=== PATIENT | female | born 1945 | race Caucasian/White ===

== ENCOUNTER 2016-05-22 10:29 | Inpatient (IN) | payer MEDICARE, BC ==
[2016-05-22 12:14] LABS: Urine Bilirubin Negative (Negative); Urine Glucose Negative (Negative); Urine Nitrite Negative (Negative)
[2016-05-22 12:24] LABS: Benzodiazepine Urine Screen None Detected (None Detect)
[2016-05-22 12:32] LABS: Hematocrit 40 % (35-47); Hemoglobin 13.7 g/dl (12.0-16.0); Mean Corpuscular HGB Conc 34 g/dl (31-36); Mean Corpuscular Hemoglobin 30 pg (27-31); Mean Corpuscular Volume 88 fL (80-97); Mean Platelet Volume 8 um3 (7.4-10.4); Red Blood Count 4.53 10^6/ul (4.0-5.4); Red Cell Distribution Width 13 % (10.5-15); White Blood Count 8.8 10^3/ul (3.5-10.8)
[2016-05-22 12:48] LABS: ALT 13 U/L (7-52); AST 16 U/L (13-39); Albumin 4.1 g/dL (3.2-5.2); Alkaline Phosphatase 21 U/L (34-104); Anion Gap 8 mmol/L (2-11); BUN/Creatinine Ratio 20.3 (8-20); Blood Urea Nitrogen 14 mg/dL (6-24); CO2 Carbon Dioxide 24 mmol/L (22-32); Calcium 9.8 mg/dL (8.6-10.3); Chloride 102 mmol/L (101-111); EGFR African American 108.5 (>60); EGFR Non-African American 84.4 (>60); Glucose 104 mg/dL (70-100); Potassium 4.1 mmol/L (3.5-5.0); Sodium 134 mmol/L (133-145); Total Protein 7.1 g/dL (6.4-8.9)
[2016-05-22 13:12] LABS: Acetaminophen < 15 mcg/mL; Alcohol < 10 mg/dL (<10); Salicylate < 2.50 mg/dL (<30)
[2016-05-22 13:22] LABS: TSH (Thyroid Stimulating Horm) 0.73 mcIU/mL (0.34-5.60)
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
[2016-05-22] MEDS ORDERED: Acetaminophen TAB* 325 MG PO PRN (15:54)
[2016-05-22] MEDS ORDERED: Al Hydrox/Mg Hydrox/Simet LIQ* 30 ML UDC PO PRN (15:54)
[2016-05-22] MEDS: OLANzapine TAB* 5 MG PO SCH (20:57)
[2016-05-23] MEDS: Nicotine PATCH 14 MG/24 HR* PATCH TRANSDERM SCH (08:30)
[2016-05-23] MEDS: Vitamin THERAPEUTIC TAB PO SCH (08:31)
[2016-05-23] MEDS ORDERED: Venlafaxine EXT RELEASE CAP* 75 MG PO SCH ×2 (09:00→15:53)
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
[2016-05-23] MEDS: OLANzapine TAB* 5 MG PO SCH (20:16)
[2016-05-23] MEDS: Nicotine Patch Removal NOTE PATCH OFF SCH (21:03)
[2016-05-24] MEDS: Vitamin THERAPEUTIC TAB PO SCH (09:32)
[2016-05-24] MEDS: Venlafaxine EXT RELEASE CAP* 75 MG PO SCH (09:32)
[2016-05-24] MEDS: Nicotine PATCH 14 MG/24 HR* PATCH TRANSDERM SCH (09:33)
--- NOTE | 2016-05-24 16:16 | PN ---
Subjective - Subjective Service Type: 16453 Hosp care 25 min moderate complexity Subjective: Ms Alcala continues to express mood-congruent delusional dread about going to alf. She has no physical complaints. She is pleasant in her highly anxious interactions. She denies any dangerous intent or plan, or hallucinations. Objective - Appearance Appearance: Healthy Appearing Dysmorphic Features: No Hygiene: Normal Grooming: Well Kept - Behavior Psychomotor Activities: Abnormal-Increased - spending her time in bed Exhibits Abnormal Movement: No - Attitude and Relatedness Attitude and Relatedness: Cooperative Eye Contact: Fair - Speech Quality: Unpressured Latencies: Normal Quantity: Appropriate - Mood Patient's Decription of Mood: "Depressed" - Affect Observed Affect: Depressed Affect Consistent with: Dysphoria - Thought Process Patient's Thought Process: Coherent, Goal Directed Thought Content: Yes Paranoid Ideation, No Passive Wish, No Suicidal Planning, No Homicidal Ideation - Sensorium Experiencing Hallucinations: No, Sensorium is Clear Type of Hallucinations: Visual: No, Auditory: No, Command: No - Level of Consciousness Level of Consciousness: Alert Orientation: Yes Intact, Yes Orientated to Time, Yes Orientated to Place, Yes Orientated to Person - Impulse Control Impulse Control: Intact - Insight and Judgement Insight and Judgement: Impaired - Group Participation Particating in Group Activities: Yes - Medication Management Medication Management Adherence: Yes Assessment - Assessment Merits Inpatient Hospitalization: For Immediate Safety, For Stabilization, To Initiate Treatment, For Ongoing Evaluation, For Discharge Planning, Pending Safe DC Plan Inpatient DSM-IV Dx: Other specified anxiety and depressive disorders. Clinical Impression: Leticia is a 70 year-old woman impaired by chronic severe anxiety and delusional guilt and worry. She also may have mild cognitive impairment. Her preference is a brief hospitalization. She reports that she did poorly through ECT at [facility] between her last admission here and this one. Plan - Plan Treatment Plan: Name: LETICIA ALCALA Birthdate: 1945 [id number] Continue olanzapine and venlafaxine. Encourage milieu and groups. Offer distractions away from delusional dread. Monitor MS and safety. Plan discharge. Medications: Current Medications Acetaminophen (Tylenol Tab*) 650 mg PO Q4H PRN PRN Reason: for pain; or Temp >101 F Al Hydrox/Mg Hydrox/Simethicone (Maalox Plus*) 30 ml PO Q4H PRN PRN Reason: INDIGESTION Multivitamins (Theragran Tab*) 1 tab PO DAILY [facility] Last Admin: 05/24/16 09:32 Dose: 1 tab Nicotine (Nicotine Patch 14 Mg/24 Hr*) 1 patch TRANSDERM DAILY@0800 [facility] Last Admin: 05/24/16 09:33 Dose: Not Given Olanzapine (Zyprexa Tab*) 5 mg PO BEDTIME [facility] Last Admin: 05/23/16 20:16 Dose: 5 mg Pharmacy Profile Note (Nicotine Patch Removal Note*) 1 note PATCH OFF 2100 [facility] Last Admin: 05/23/16 21:03 Dose: Not Given Venlafaxine HCl (Effexor Xr Cap*) 75 mg PO 0900 [facility] Last Admin: 05/24/16 09:32 Dose: 75 mg - Discharge Plan Discharge Plan: Outpatient Follow Up
[2016-05-24] MEDS: OLANzapine TAB* 5 MG PO SCH (20:15)
[2016-05-24] MEDS: Nicotine Patch Removal NOTE PATCH OFF SCH (20:16)
[2016-05-25] MEDS: Vitamin THERAPEUTIC TAB PO SCH (09:44)
[2016-05-25] MEDS: Venlafaxine EXT RELEASE CAP* 75 MG PO SCH (09:44)
[2016-05-25] MEDS: Nicotine PATCH 14 MG/24 HR* PATCH TRANSDERM SCH (09:45)
[2016-05-25] MEDS: OLANzapine TAB* 5 MG PO SCH (22:14)
[2016-05-25] MEDS: Nicotine Patch Removal NOTE PATCH OFF SCH (23:05)
[2016-05-26] MEDS: Nicotine PATCH 14 MG/24 HR* PATCH TRANSDERM SCH (08:46)
[2016-05-26] MEDS: Vitamin THERAPEUTIC TAB PO SCH (08:46)
[2016-05-26] MEDS: Venlafaxine EXT RELEASE CAP* 75 MG PO SCH (08:46)
--- NOTE | 2016-05-26 15:13 | PN ---
Subjective - Subjective Subjective: Leticia endorses continued difficulties with depressed mood, high anxiety, recalling names of familiar people, some improvement in sleep. She avidly denies suicidal ideation. She denies side effects from her prescribed meds. Per staff, she has been adherent to unit's routines. Objective - Appearance Appearance: Well Developed/Nourished Dysmorphic Features: No Hygiene: Normal Grooming: Well Kept - Behavior Psychomotor Activities: Normal Exhibits Abnormal Movement: No - Attitude and Relatedness Attitude and Relatedness: Cooperative Eye Contact: Fair - Speech Quality: Unpressured Latencies: Normal Quantity: Appropriate - Mood Patient's Decription of Mood: same - Affect Observed Affect: Constricted Affect Consistent with: Dysphoria - Thought Process Patient's Thought Process: Coherent, Goal Directed Thought Content: No Passive Wish, No Suicidal Planning, No Homicidal Ideation, No Paranoid Ideation - Sensorium Experiencing Hallucinations: No, Sensorium is Clear - Level of Consciousness Level of Consciousness: Alert Orientation: Yes Intact - Insight and Judgement Insight and Judgement: Fair - Group Participation Particating in Group Activities: Yes - Medication Management Medication Management Adherence: Yes Assessment - Assessment Merits Inpatient Hospitalization: [facility], For Discharge Planning Inpatient DSM-IV Dx: Other specified anxiety and depressive disorders. Clinical Impression: ongoing depressive and anxiety symptoms but denying suicidality. Tolerating restarting of outpatient regimen with no reported side effects. Plan - Plan Treatment Plan: Name: LETICIA ALCALA Birthdate: 1945 [id number] Continued Medication Management: Continue Outpt Medication Medications: Current Medications Acetaminophen (Tylenol Tab*) 650 mg PO Q4H PRN PRN Reason: for pain; or Temp >101 F Al Hydrox/Mg Hydrox/Simethicone (Maalox Plus*) 30 ml PO Q4H PRN PRN Reason: INDIGESTION Multivitamins (Theragran Tab*) 1 tab PO DAILY [facility] Last Admin: 05/26/16 08:46 Dose: 1 tab Nicotine (Nicotine Patch 14 Mg/24 Hr*) 1 patch TRANSDERM DAILY@0800 [facility] Last Admin: 05/26/16 08:46 Dose: Not Given Olanzapine (Zyprexa Tab*) 5 mg PO BEDTIME [facility] Last Admin: 05/25/16 22:14 Dose: 5 mg Pharmacy Profile Note (Nicotine Patch Removal Note*) 1 note PATCH OFF 2100 [facility] Last Admin: 05/25/16 23:05 Dose: Not Given Venlafaxine HCl (Effexor Xr Cap*) 75 mg PO 0900 [facility] Last Admin: 05/26/16 08:46 Dose: 75 mg - Discharge Plan Discharge Plan: Outpatient Follow Up Outpatient Program: [facility]
[2016-05-26] MEDS: OLANzapine TAB* 5 MG PO SCH (20:44)
[2016-05-26] MEDS: Nicotine Patch Removal NOTE PATCH OFF SCH (20:44)
[2016-05-27] MEDS: Nicotine PATCH 14 MG/24 HR* PATCH TRANSDERM SCH (08:15)
[2016-05-27] MEDS: Vitamin THERAPEUTIC TAB PO SCH (08:16)
[2016-05-27] MEDS: Venlafaxine EXT RELEASE CAP* 75 MG PO SCH (08:16)
--- NOTE | 2016-05-27 15:38 | PN ---
Subjective - Subjective Service Type: 23394 Hosp care 25 min moderate complexity Subjective: Leticia said she feels unready to go home today, but could contemplate it soon. Continues beset with worry about having done something wrong, or the location of her wallet. Agrees with current medication regimen. I spoke with her son Yu - he supports trying to keep admission brief as he' s seen patient get more dependent with inpatient care. Said he sees patterns of help rejecting - and seems to be due to secondary gain with attention she gets from caregivers. I talked about possible cognitive changes, pt's abnormal MRI here, plan for testing, and rationale for avoiding benzodiazepines. Also, he provided his view of recent treatments ([facility] and [facility]) - that a lot of work went into arriving at the Effexor/Zyprexa/klonopin regimen, that ECT did not work, and that Leticia's medication non-adherence largely drove her deterioration. Objective - Appearance Appearance: Healthy Appearing Hygiene: Normal Grooming: Fairly Well Kept - Behavior Psychomotor Activities: Normal - Attitude and Relatedness Attitude and Relatedness: Needy Eye Contact: Good - Speech Quality: Unpressured Latencies: Normal Quantity: Appropriate - Mood Patient's Decription of Mood: "Anxious" - Affect Observed Affect: Tense Affect Consistent with: Dysphoria - Thought Process Patient's Thought Process: Impoverished - perseverative Thought Content: No Passive Wish, No Suicidal Planning, No Homicidal Ideation, No Paranoid Ideation - Sensorium Experiencing Hallucinations: No, Sensorium is Clear - Level of Consciousness Level of Consciousness: Alert - Impulse Control Impulse Control: Intact - Insight and Judgement Insight and Judgement: Poor Assessment - Assessment Merits Inpatient Hospitalization: For Stabilization, To Initiate Treatment, For Ongoing Evaluation, For Discharge Planning Inpatient DSM-IV Dx: Anxiety disorder, not otherwise specified; rule out delusional disorder; rule out dissociative disorder; personality disorder, not otherwise specified; rule out posttraumatic stress disorder; rule out cognitive disorder, not otherwise specified. Clinical Impression: Iumtw[age]erk[age]goh-old female with chronic severe anxiety, irrational or delusional guilt and worry who symptoms get the point of being impairing at times. She also may have chronic cognitive difficulties pursuant to brain abnormalities or use of benzodiazepine. She has had a difficult subacute course with multiple hospitalizations, high levels of distress and dysfunction. Stable behaviorally here. At low overt distress levels, but continues with perseverative worry, guilty and catastrophic (irrational) themes. Medication management involves a restart of recent regimen as the patient reported nonadherence. Titrating Zyprexa, Effexor - holding off on benzodiazepines due to cognitive concerns. Also, will attempt cognitive testing with psychologist. mortgage clerk requested d/ c summary from [facility]. Given low expected yield of inpatient care, risk for higher dependency patterns here, her safety profile, it's appropriate to consider discharge for this week. Plan - Plan Treatment Plan: Name: LETICIA ALCALA Birthdate: 1945 [id number] Continued Medication Management: Continue Outpt Medication Medications: Current Medications Acetaminophen (Tylenol Tab*) 650 mg PO Q4H PRN PRN Reason: for pain; or Temp >101 F Al Hydrox/Mg Hydrox/Simethicone (Maalox Plus*) 30 ml PO Q4H PRN PRN Reason: INDIGESTION Multivitamins (Theragran Tab*) 1 tab PO DAILY [facility] Last Admin: 05/27/16 08:16 Dose: 1 tab Nicotine (Nicotine Patch 14 Mg/24 Hr*) 1 patch TRANSDERM DAILY@0800 [facility] Last Admin: 05/27/16 08:15 Dose: Not Given Olanzapine (Zyprexa Tab*) 5 mg PO BEDTIME [facility] Last Admin: 05/26/16 20:44 Dose: 5 mg Pharmacy Profile Note (Nicotine Patch Removal Note*) 1 note PATCH OFF 2100 [facility] Last Admin: 05/26/16 20:44 Dose: Not Given Venlafaxine HCl (Effexor Xr Cap*) 75 mg PO 0900 [facility] Last Admin: 05/27/16 08:16 Dose: 75 mg - Discharge Plan Discharge Plan: Outpatient Follow Up
[2016-05-27] MEDS: Nicotine Patch Removal NOTE PATCH OFF SCH (19:32)
[2016-05-27] MEDS: OLANzapine TAB* 5 MG PO SCH (20:15)
[2016-05-28] MEDS: Vitamin THERAPEUTIC TAB PO SCH (08:37)
[2016-05-28] MEDS: Venlafaxine EXT RELEASE CAP* 37.5 MG PO SCH (08:37)
[2016-05-28] MEDS: Nicotine PATCH 14 MG/24 HR* PATCH TRANSDERM SCH (08:39)
--- NOTE | 2016-05-28 13:52 | PN ---
Subjective - Subjective Service Type: 22022 Hosp care 15 min low complexity Subjective: Leticia reports that she continues to have the frightening thought that she is going to long-term. She says this is real, not paranoia. She cannot give any detailed account of why she would go to long-term. She has no physical complaints. Objective - Appearance Appearance: Healthy Appearing Dysmorphic Features: No Hygiene: Normal Grooming: Well Kept - Behavior Psychomotor Activities: Normal Exhibits Abnormal Movement: No - Attitude and Relatedness Attitude and Relatedness: Well Related Eye Contact: Good - Speech Quality: Unpressured Latencies: Normal Quantity: Appropriate - Mood Patient's Decription of Mood: "Scared - Affect Observed Affect: Depressed Affect Consistent with: Dysphoria - Thought Process Patient's Thought Process: Coherent, Goal Directed Thought Content: Yes Paranoid Ideation, No Passive Wish, No Suicidal Planning, No Homicidal Ideation - Sensorium Experiencing Hallucinations: No, Sensorium is Clear Type of Hallucinations: Visual: No, Auditory: No, Command: No - Level of Consciousness Level of Consciousness: Alert Orientation: Yes Intact, Yes Orientated to Time, Yes Orientated to Place, Yes Orientated to Person - Impulse Control Impulse Control: Intact - Insight and Judgement Insight and Judgement: Impaired - Group Participation Particating in Group Activities: Yes - Medication Management Medication Management Adherence: Yes Assessment - Assessment Merits Inpatient Hospitalization: For Stabilization, For Discharge Planning, Pending Safe DC Plan Inpatient DSM-IV Dx: Anxiety disorder, not otherwise specified; rule out delusional disorder; rule out dissociative disorder; personality disorder, not otherwise specified; rule out posttraumatic stress disorder; rule out cognitive disorder, not otherwise specified. Clinical Impression: Leticia is a 70 year-old woman impaired by chronic severe anxiety and delusional guilt and worry. She also may have mild cognitive impairment. Her preference is a brief hospitalization. She reports that she did poorly through ECT at [facility] between her last admission here and this one. 05.28.16 Leticia remains depressed and paranoid. She is able to tolerate hearing that her thoughts are paranoid and delusional, but cannot express any insight into that situation. She does not believe there is anything we can do to help her. She also talked about a situation where a financial service rep has made it impossible for her to access her alf funds. Plan - Plan Treatment Plan: Name: LETICIA ALCALA Birthdate: 1945 [id number] Continue olanzapine and venlafaxine. Encourage milieu and groups. Offer distractions away from delusional dread. Monitor MS and safety. Plan discharge. Medications: Current Medications Acetaminophen (Tylenol Tab*) 650 mg PO Q4H PRN PRN Reason: for pain; or Temp >101 F Al Hydrox/Mg Hydrox/Simethicone (Maalox Plus*) 30 ml PO Q4H PRN PRN Reason: INDIGESTION Multivitamins (Theragran Tab*) 1 tab PO DAILY [facility] Last Admin: 05/28/16 08:37 Dose: 1 tab Nicotine (Nicotine Patch 14 Mg/24 Hr*) 1 patch TRANSDERM DAILY@0800 [facility] Last Admin: 05/28/16 08:39 Dose: Not Given Olanzapine (Zyprexa Tab*) 10 mg PO BEDTIME [facility] Last Admin: 05/27/16 20:15 Dose: 10 mg Pharmacy Profile Note (Nicotine Patch Removal Note*) 1 note PATCH OFF 2100 [facility] Last Admin: 05/27/16 19:32 Dose: Not Given Venlafaxine HCl (Effexor Xr Cap*) 112.5 mg PO 0900 [facility] Last Admin: 05/28/16 08:37 Dose: 112.5 mg - Discharge Plan Discharge Plan: Outpatient Follow Up
[2016-05-28] MEDS: OLANzapine TAB* 5 MG PO SCH (20:32)
[2016-05-28] MEDS: Nicotine Patch Removal NOTE PATCH OFF SCH (21:58)
[2016-05-29] MEDS: Vitamin THERAPEUTIC TAB PO SCH (08:41)
[2016-05-29] MEDS: Venlafaxine EXT RELEASE CAP* 37.5 MG PO SCH (08:42)
[2016-05-29] MEDS: Nicotine PATCH 14 MG/24 HR* PATCH TRANSDERM SCH (08:49)
--- NOTE | 2016-05-29 11:26 | PN ---
Subjective - Subjective Service Type: 77963 Hosp care 15 min low complexity Subjective: Leticia reports still being beset with concerns. Says at home she has inadequate support - but supported residence is not an option "Because I have no money." She doesn't see any option working other than staying in the hospital, and seems open to the idea of an indefinite stay here. Objective - Appearance Appearance: Healthy Appearing Hygiene: Normal Grooming: Fairly Well Kept - Behavior Psychomotor Activities: Normal - Attitude and Relatedness Attitude and Relatedness: Needy Eye Contact: Good - Speech Quality: Unpressured Latencies: Normal Quantity: Terse - Mood Patient's Decription of Mood: "Anxious" - Affect Observed Affect: Tense Affect Consistent with: Dysphoria - Thought Process Patient's Thought Process: Impoverished Thought Content: No Passive Wish, No Suicidal Planning, No Homicidal Ideation, No Paranoid Ideation - Sensorium Experiencing Hallucinations: No, Sensorium is Clear - Level of Consciousness Level of Consciousness: Alert - Impulse Control Impulse Control: Intact - Insight and Judgement Insight and Judgement: Poor Assessment - Assessment Merits Inpatient Hospitalization: To Initiate Treatment, For Ongoing Evaluation , For Discharge Planning, Pending Safe DC Plan Inpatient DSM-IV Dx: Anxiety disorder, not otherwise specified; rule out delusional disorder; rule out dissociative disorder; personality disorder, not otherwise specified; rule out posttraumatic stress disorder; rule out cognitive disorder, not otherwise specified. Clinical Impression: Xsqax-rzji-utzz-old female with chronic severe anxiety, irrational or delusional guilt and worry who symptoms get the point of being impairing at times. She also may have chronic cognitive difficulties pursuant to brain abnormalities or use of benzodiazepine. She has had a difficult subacute course with multiple hospitalizations, high levels of distress and dysfunction. Stable behaviorally here. At low overt distress levels, but continues with perseverative worry, guilty delusiona and catastrophic (irrational) themes. Medication management involves a restart of recent regimen as the patient reported nonadherence. Titrating Zyprexa, Effexor - holding off on benzodiazepines due to cognitive concerns. Also, will attempt cognitive testing with psychologist. relay record clerk requested d/c summary from [facility]. Given low expected yield of inpatient care, and patient's dependency pattern here (this seems to be informing patient's thinking on discharge planning), her outpatient support and her safety profile, it's appropriate to work towards discharge when some additional support or structure is in place. Plan - Plan Treatment Plan: Name: LETICIA ALCALA Birthdate: 1945 [id number] Continued Medication Management: Start Medication Medications: Current Medications Acetaminophen (Tylenol Tab*) 650 mg PO Q4H PRN PRN Reason: for pain; or Temp >101 F Al Hydrox/Mg Hydrox/Simethicone (Maalox Plus*) 30 ml PO Q4H PRN PRN Reason: INDIGESTION Multivitamins (Theragran Tab*) 1 tab PO DAILY [facility] Last Admin: 05/29/16 08:41 Dose: 1 tab Nicotine (Nicotine Patch 14 Mg/24 Hr*) 1 patch TRANSDERM DAILY@0800 [facility] Last Admin: 05/29/16 08:49 Dose: Not Given Olanzapine (Zyprexa Tab*) 10 mg PO BEDTIME [facility] Last Admin: 05/28/16 20:32 Dose: 10 mg Pharmacy Profile Note (Nicotine Patch Removal Note*) 1 note PATCH OFF 2100 [facility] Last Admin: 05/28/16 21:58 Dose: Not Given Venlafaxine HCl (Effexor Xr Cap*) 112.5 mg PO 0900 [facility] Last Admin: 05/29/16 08:42 Dose: 112.5 mg - Discharge Plan Discharge Plan: Outpatient Follow Up
[2016-05-29] MEDS: OLANzapine TAB* 5 MG PO SCH (20:43)
[2016-05-29] MEDS: Nicotine Patch Removal NOTE PATCH OFF SCH (21:08)
[2016-05-30] MEDS: Venlafaxine EXT RELEASE CAP* 37.5 MG PO SCH (08:43)
[2016-05-30] MEDS: Vitamin THERAPEUTIC TAB PO SCH (08:43)
[2016-05-30] MEDS: Nicotine PATCH 14 MG/24 HR* PATCH TRANSDERM SCH (08:52)
[2016-05-30] MEDS: OLANzapine TAB* 5 MG PO SCH (20:23)
[2016-05-30] MEDS: Nicotine Patch Removal NOTE PATCH OFF SCH (22:03)
[2016-05-31] MEDS: Vitamin THERAPEUTIC TAB PO SCH (08:38)
[2016-05-31] MEDS: Venlafaxine EXT RELEASE CAP* 37.5 MG PO SCH (08:38)
[2016-05-31] MEDS: Nicotine PATCH 14 MG/24 HR* PATCH TRANSDERM SCH (10:40)
--- NOTE | 2016-05-31 13:35 | PN ---
Subjective - Subjective Service Type: 71384 Hosp care 15 min low complexity Subjective: Leticia was hard to redirect in conversation and wanted to discuss concerns about her automobile insurance. She denied other current concerns. Dr. Moya and I spoke with her son Yu by phone and updated him on the assessment and consideration for dementia process. Objective - Appearance Appearance: Thin Framed Hygiene: Normal Grooming: Well Kept - Behavior Psychomotor Activities: Normal - Attitude and Relatedness Attitude and Relatedness: Needy Eye Contact: Good - Speech Quality: Unpressured Latencies: Short Quantity: Copious - Mood Patient's Decription of Mood: "Anxious" - Affect Observed Affect: Tense Affect Consistent with: Dysphoria - Thought Process Patient's Thought Process: Over Inclusive - perseverative Thought Content: No Passive Wish, No Suicidal Planning, No Homicidal Ideation, No Paranoid Ideation - Sensorium Experiencing Hallucinations: No, Sensorium is Clear - Level of Consciousness Level of Consciousness: Alert - Impulse Control Impulse Control: Intact - Insight and Judgement Insight and Judgement: Impaired Assessment - Assessment Merits Inpatient Hospitalization: For Ongoing Evaluation, For Discharge Planning , Pending Safe DC Plan Inpatient DSM-IV Dx: Anxiety disorder, not otherwise specified. Cognitive disorder, not otherwise specified. rule out Dementia with Delusions Clinical Impression: Nsvnz-agpp-dcuo-old female with chronic severe anxiety, irrational or delusional guilt and worry who symptoms get the point of being impairing at times. She also may have chronic cognitive difficulties pursuant to brain abnormalities or use of benzodiazepine. She has had a difficult subacute course with multiple hospitalizations, high levels of distress and dysfunction. Stable behaviorally here. At variable but generally low overt distress levels. She continues with perseverative worry, guilty delusions and catastrophic (irrational) themes. Medication management involves a restart of recent regimen as the patient reported nonadherence. Titrating Zyprexa, Effexor - holding off on benzodiazepines due to cognitive concerns. Evaluation includes cognitive testing with psychologist. See details in Dr. Moya's note. Results support cognitive disorder / Dementia process. This fits with a history of personality change, subjective cognitive dysfunction , psychosis not responsive to medication or ECT. Patient's MRI abnormality (Dec 2015 - periventricular and subcortical white matter changes) can be associated with cognitive dysfunction, though a clear risk factor for those changes is not evident. Neurology referral for ongoing followup after discharge is merited. print shop chief clerk previously requested d/c summary from [facility]. Given low expected yield of inpatient care, her outpatient support and her safety profile, it's appropriate to work towards discharge when additional support or structure is in place - we expect [facility] to provide a bed in a residence. Plan - Plan Treatment Plan: Name: LETICIA ALCALA Birthdate: 1945 [id number] Continued Medication Management: Start Medication Medications: Current Medications Acetaminophen (Tylenol Tab*) 650 mg PO Q4H PRN PRN Reason: for pain; or Temp >101 F Al Hydrox/Mg Hydrox/Simethicone (Maalox Plus*) 30 ml PO Q4H PRN PRN Reason: INDIGESTION Multivitamins (Theragran Tab*) 1 tab PO DAILY [facility] Last Admin: 05/31/16 08:38 Dose: 1 tab Olanzapine (Zyprexa Tab*) 10 mg PO BEDTIME [facility] Last Admin: 05/30/16 20:23 Dose: 10 mg Venlafaxine HCl (Effexor Xr Cap*) 112.5 mg PO 0900 [facility] Last Admin: 05/31/16 08:38 Dose: 112.5 mg - Discharge Plan Discharge Plan: Outpatient Follow Up
--- NOTE | 2016-05-31 18:41 | CONS ---
PSYCHOLOGICAL REPORT: DATE OF CONSULT: 05/31/16 DATE OF DICTATION: 05/31/16 REASON FOR REFERRAL: Jay was referred for psychometric testing in order to assist with rule out of possible dementia versus psychosis as presenting difficulties. TEST ADMINISTERED: Jay completed the Tre Adult Intelligence Scale - Fourth Edition (WAIS-IV) in one sitting. As Jay put forth a sincere effort throughout the test administration, this is felt to be a reasonable reflection of her current intellectual aptitudes in as much as this test is a reliable and valid instrument. BEHAVIORAL OBSERVATIONS: Jay is a 70-year-old woman, who has a supportive son living in [place]. She also has many supportive friends who are very active in visiting while she is hospitalized and are strong advocates for her well-being. Concerns are that Jay has expressed what appears to be delusional thinking in regards to the prospects of her being sent to shelter as well as her stating that she does not have any money when to the contrary she cannot be reassured by family or friends that she is doing reasonably well. She lives in a duplex that she owns, while she rents the other half out, which apparently provides her a reasonable income. 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 She has been partnered with serial females in recent history. Jay presents as very anxious and concerned about her ability to function, expressing concerns that hospital staff was going to kick her out of the unit before she is ready. Apparently, she does not feel comfortable returning to her home where she has struggled with characteristic functioning. This is her second psychiatric hospitalization in this facility with the other occurring in December of 2015. Apparently, administration of ECT was unsuccessful in helping diminish her symptoms. TESTS RESULTS: Jay obtained a full scale IQ of 92 on this administration of WAIS- IV, an effort which falls at the 30th percentile of intellectual functioning. She has very significant split on her verbal comprehension index, as compared to her perceptual reasoning index. She attains a verbal comprehension index score of 108, while only attaining score of 79 on the perceptual reasoning index. These efforts fall at the 70th and the 8th percentile respectively. Her working memory was currently assessed to be 95 which falls into 37th percentile of intellectual aptitudes while her processing speed index was at 89, and therefore which falls into 23rd percentile of intellectual functioning. Given Jay's educational and vocational attainment, her scoring impresses as a very significant decrement than what would be expected. 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 These findings are felt to reflect previous MRIs, which were found to have significant abnormalities. Her working memory processing speed indices are felt to be encouraging in that she still falls in the average range of intellectual abilities and processing and retaining information. Her difficulties on the arithmetic subtest were particularly indicative where she only attained a scale score of 6. She had great difficulties retaining and then processing basic arithmetic functions, whereas she did better on the digit span, which is simply repeating numbers that are spoken verbally. Hence, she does better with repetitive tasks rather than having to process abstract information. Her difficulties with abstract reasoning currently are also reflected and relatively poor showing on the similarities subtest where she only attained a subscale of 9. The similarities subtest calls for abstract reasoning in trying to identify how two different things are alike. Her very poor showing on the block design subtest (scale score of 6) is also felt to be reflective of organic pathologies. It is clear that she has difficulties in perceptual reasoning and that only evidenced in the testing context but in that she had difficult time never getting the hallways and find her way back to the unit. IMPRESSIONS AND RECOMMENDATIONS: Jay is likely to need alternative placement , if not in the immediate future in coming months. It is hoped that she can find a supportive environment which will provide her consistent care and help her maintain current functioning. The importance of cardiovascular health should be emphasized with Jay as persons who are sedentary tend to have a steep decline in functional capacities, whereas people who remain active tend to maintain current levels of functioning better. Antidepressive medications are more typically more effective than any employment of antipsychotics as etiology of her delusional beliefs are likely to be secondary to organic pathologies rather than encroaching schizophrenic- type symptoms. Supportive living environment should be structured and consistent and people who are experiencing cognitive impairment tend to do better with familiar routines and increasing levels of structure. [id number]/[facility] #: [id number] [facility] CENTERSalvador
[2016-05-31] MEDS: OLANzapine TAB* 5 MG PO SCH (20:37)
[2016-06-01] MEDS: Venlafaxine EXT RELEASE CAP* 37.5 MG PO SCH (09:11)
[2016-06-01] MEDS: Vitamin THERAPEUTIC TAB PO SCH (09:11)
[2016-06-01] MEDS: OLANzapine TAB* 5 MG PO SCH (20:11)
[2016-06-02] MEDS: Vitamin THERAPEUTIC TAB PO SCH (09:07)
[2016-06-02] MEDS: Venlafaxine EXT RELEASE CAP* 37.5 MG PO SCH (09:07)
[2016-06-02] MEDS: OLANzapine TAB* 5 MG PO SCH (20:27)
[2016-06-03] MEDS: Venlafaxine EXT RELEASE CAP* 37.5 MG PO SCH (08:50)
[2016-06-03] MEDS: Vitamin THERAPEUTIC TAB PO SCH (08:51)
[2016-06-03] MEDS ORDERED: PPD test dose* 5 TU/0.1 ML TEST (*USE PPD ORDER SET*) INTRADERM ONE (12:11)
--- NOTE | 2016-06-03 12:11 | PN ---
Subjective - Subjective Service Type: 90200 Hosp care 15 min low complexity Subjective: Leticia asked about "the plan" and I filled her in - she had little or no recall of prior discussions and perseverated on the "fact" that she will be out of money and "in the long-term." Objective - Appearance Appearance: Healthy Appearing Hygiene: Normal Grooming: Well Kept - Behavior Psychomotor Activities: Normal - Attitude and Relatedness Attitude and Relatedness: Needy Eye Contact: Good - Speech Quality: Unpressured Latencies: Normal Quantity: Terse - Mood Patient's Decription of Mood: "Anxious" - Affect Observed Affect: Tense Affect Consistent with: Dysphoria - Thought Process Patient's Thought Process: Impoverished Thought Content: No Passive Wish, No Suicidal Planning, No Homicidal Ideation, No Paranoid Ideation - Sensorium Experiencing Hallucinations: No, Sensorium is Clear - Level of Consciousness Level of Consciousness: Alert - Impulse Control Impulse Control: Intact - Insight and Judgement Insight and Judgement: Impaired Assessment - Assessment Merits Inpatient Hospitalization: For Ongoing Evaluation, For Discharge Planning , Pending Safe DC Plan Inpatient DSM-IV Dx: Anxiety disorder, not otherwise specified. Cognitive disorder, not otherwise specified. rule out Dementia with Delusions Clinical Impression: Lqxrt-hxvf-bgwn-old female with chronic severe anxiety, irrational or delusional guilt and worry who symptoms get the point of being impairing at times. She also may have chronic cognitive difficulties pursuant to brain abnormalities or use of benzodiazepine. She has had a difficult subacute course with multiple hospitalizations, high levels of distress and dysfunction. Stable behaviorally here. At variable but generally low overt distress levels. She continues with perseverative worry, guilty delusions and catastrophic (irrational) themes. Medication management involves a restart of recent regimen as the patient reported nonadherence. Titrating Zyprexa, Effexor - holding off on benzodiazepines due to cognitive concerns. Evaluation includes cognitive testing with psychologist, and Leticia is newly diagnosed with Cognitive disorder/ Dementia. See details in Dr. Moya's note. Results support cognitive disorder / Dementia process. This fits with a history of personality change, subjective cognitive dysfunction , psychosis not responsive to medication or ECT. Patient's MRI abnormality (Dec 2015 - periventricular and subcortical white matter changes) can be associated with cognitive dysfunction, though a clear risk factor for those changes is not evident. Neurology referral for ongoing followup after discharge is merited. traffic rate clerk previously requested d/c summary from [facility]. Given low expected yield of inpatient care, her outpatient support and her safety profile, it's appropriate to work towards discharge when additional support or structure is in place - we expect [facility] to provide a bed in a residence. Plan - Plan Treatment Plan: Name: LETICIA ALCALA Birthdate: 1945 [id number] Continued Medication Management: Start Medication Medications: Current Medications Acetaminophen (Tylenol Tab*) 650 mg PO Q4H PRN PRN Reason: for pain; or Temp >101 F Al Hydrox/Mg Hydrox/Simethicone (Maalox Plus*) 30 ml PO Q4H PRN PRN Reason: INDIGESTION Multivitamins (Theragran Tab*) 1 tab PO DAILY [facility] Last Admin: 06/03/16 08:51 Dose: 1 tab Olanzapine (Zyprexa Tab*) 10 mg PO BEDTIME [facility] Last Admin: 06/02/16 20:27 Dose: 10 mg Venlafaxine HCl (Effexor Xr Cap*) 112.5 mg PO 0900 [facility] Last Admin: 06/03/16 08:50 Dose: 112.5 mg - Discharge Plan Discharge Plan: Outpatient Follow Up
[2016-06-03] MEDS: OLANzapine TAB* 5 MG PO SCH (20:19)
[2016-06-04] MEDS: Venlafaxine EXT RELEASE CAP* 37.5 MG PO SCH (09:11)
[2016-06-04] MEDS: Vitamin THERAPEUTIC TAB PO SCH (09:11)
--- NOTE | 2016-06-04 13:08 | PN ---
MHU: Group Therapy Note - Service Type Service Type: [id number] Group Psychotherapy - Cognitive Behavioral Group Therapy ( CBT):Patient attended CBT programming this morning and presented with flat affect that did not vary with discussion. Although responsive to direct prompts to respond to questions, patient did not engage in spontaneous conversation.
[2016-06-04] MEDS: OLANzapine TAB* 5 MG PO SCH (21:35)
[2016-06-05 07:59] VITALS: BP 153/81
[2016-06-05] MEDS: Venlafaxine EXT RELEASE CAP* 37.5 MG PO SCH (09:22)
[2016-06-05] MEDS: Vitamin THERAPEUTIC TAB PO SCH (09:22)
--- NOTE | 2016-06-05 10:56 | DS ---
Subjective - Subjective Service Types: [id number] Hosp DC Day Mgmt simple under 30 min Discharge Date: 06/05/16 Subjective: Jay agreed with discharge but expressed disbelief she can afford to pay for the plan. She expressed irrational guilt that her voluntary status got her "kicked out." I reviewed her medicine and aftercare plan - and offered her Tamiflu prophylaxis - per recommendation from infection control (a peer tested for Inf. A). She declined it, aware there is some risk of flu infection involved. Objective - Appearance Appearance: Healthy Appearing Hygiene: Normal Grooming: Well Kept - Behavior Psychomotor Activities: Normal - Attitude and Relatedness Attitude and Relatedness: Needy Eye Contact: Good - Speech Quality: Unpressured Latencies: Normal Quantity: Terse - Mood Patient's Decription of Mood: "Anxious" - Affect Observed Affect: Tense Affect Consistent with: Dysphoria - Thought Process Patient's Thought Process: Impoverished Thought Content: No Passive Wish, No Suicidal Planning, No Homicidal Ideation, No Paranoid Ideation - Sensorium Experiencing Hallucinations: No, Sensorium is Clear - Level of Consciousness Level of Consciousness: Alert - Impulse Control Impulse Control: Intact - Insight and Judgement Insight and Judgement: Impaired Treatment Course & Assessment Clinical Course & Impression: Bthgc-ahsj-cbur-old female with chronic severe anxiety, irrational or delusional guilt and worry who symptoms get the point of being impairing at times. She also may have chronic cognitive difficulties pursuant to brain abnormalities or use of benzodiazepine. She has had a difficult subacute course with multiple hospitalizations, high levels of distress and dysfunction. 06/05/16 Clear for release. Jay was stable behaviorally here, with a consistent presentation and ongoing stable symptom level. She was at variable but generally low overt distress levels. She continued with perseverative worry, guilty delusions and catastrophic (irrational) themes. Medication management involves a restart of recent regimen as the patient reported nonadherence. We titrated Zyprexa, Effexor - holding off on benzodiazepines due to cognitive concerns. Zyprexa may not be indicated for longer term use as lack of robust response may mean it is not justified. Evaluation included cognitive testing with psychologist, and Jay is newly diagnosed with Cognitive disorder/ Dementia. See details in Dr. Moya's note. Results support cognitive disorder / Dementia process. This fits with a history of personality change, subjective cognitive dysfunction , psychosis not responsive to medication or ECT. Jay's MRI abnormality (Dec 2015 - periventricular and subcortical white matter changes) can be associated with cognitive dysfunction, though a clear risk factor for those changes is not evident. Neurology referral for ongoing followup after discharge is merited. automobile rental clerk previously requested d/c summary from [facility]. Given low expected yield of inpatient care, her outpatient support and her safety profile, she is appropriate for ambulatory status. Clear for Discharge: Acceptable Safety Profile, Low Utility of Inpt Care Inpatient DSM-IV Dx: Anxiety disorder, not otherwise specified. Cognitive disorder, not otherwise specified (Dementia). 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 Neelima Spring, Neurology, 08/07/16 Medications: Current Medications Olanzapine (Zyprexa Tab*) 10 mg PO BEDTIME [facility] Last Admin: 06/04/16 21:35 Dose: 10 mg Venlafaxine HCl (Effexor Xr Cap*) 112.5 mg PO 0900 [facility] Last Admin: 06/05/16 09:22 Dose: 112.5 mg Discharge Planning: Prescriptions provided for discharge [x] Yes [] No Follow up care details as per social work arrangements. Patient response to discharge plan: [] eager for discharge [x] agreeable with discharge plan [] ambivalent about discharge [] disagrees with discharge today
--- NOTE | 2016-06-05 12:06 | PN ---
MHU: Group Therapy Note - Service Type Service Type: [id number] Group Psychotherapy - Cognitive Behavioral Group Therapy ( CBT):Patient attended CBT programming this morning and presented with flat affect that did not vary with discussion. Although responsive to direct prompts to respond to questions, patient did not engage in spontaneous conversation. Metta expressed apprehension about her prospects of discharge, but responded somewhat to reassurance. Concerns regarding perseveration remain.
[2016-06-05] MEDS ORDERED: PPD Reading NOTE* (*USE PPD ORDER SET*) SCH (12:11)
== END 2016-06-05 13:25 | DRG 880 ==
LOC: ED 10:29 → BSU 18:29
PROVIDERS: ADMIT Psychiatry & Neurology Psychiatry; ATTEND Psychiatry & Neurology Psychiatry
DX: F41.9 Anxiety disorder, unspecified (principal); F03.90 Unspecified dementia, unspecified severity, without behavioral disturbance, psychotic disturbance, mood disturbance, and anxiety; F05 Delirium due to known physiological condition; F09 Unspecified mental disorder due to known physiological condition; Z79.899 Other long term (current) drug therapy; Z88.8 Allergy status to other drugs, medicaments and biological substances; Z81.8 Family history of other mental and behavioral disorders
CPT/HCPCS: 36415; 80053; 80307; 80320; 80329; 81003; 84443; 85025; 90853; 96102; 99222; 99231; 99232; 99238; A9270-GY; G0480

== ENCOUNTER 2016-09-17 12:32 | Emergency (ER) | payer MEDICARE, BC ==
[2016-09-17 12:51] VITALS: BP 122/73
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
== END 2016-09-17 14:40 | disposition left against medical advice (07) ==
LOC: ED 12:32
DX: M25.562 Pain in left knee (principal); R41.82 Altered mental status, unspecified; Z87.891 Personal history of nicotine dependence
CPT/HCPCS: 99282

== ENCOUNTER 2018-09-29 10:43 | Day surgery (SDC) | payer MEDICARE, BC ==
[~2018-09-29 10:43] MED LIST: Acetaminophen TAB* 325 MG PO PRN; Buffered Lidocaine 1% SYRIN* 1 ML/SYRINGE INTRADERM ONE; Cyclopentolate 1% OPTH.SOL* 2 ML BTL ONE; Ketorolac 0.5% OPHTH (NF) 0.5 % 5 ML BTL ONE; Lidocaine 1%* 5 ML VIAL ONE; Neomycin/Polymy/Dex OPHTH.OIN* 3.5 GM ONE; Phenylephrine OPHTH SOL 2.5%* 2 ML ONE; Tetracaine 0.5% OPTH.SOL 4 ML* 1 DROP BTL ONE; Tropicamide 1% OPTH.SOL* BTL ONE
[2018-09-29] MEDS ORDERED: fentaNYL* 50 MCG/ML 2 ML VIAL (100 MCG VIAL) ONE (11:39)
[2018-09-29] MEDS ORDERED: Midazolam* 1 MG/ML 5 ML VIAL (5 MG) ONE (11:39)
[2018-09-29] MEDS ORDERED: Propofol* 10 MG/ML 20 ML BTL ONE (12:38)
[2018-09-29] MEDS ORDERED: Phenylephrine OPHTH SOL 2.5%* 2 ML ONE (12:56)
[2018-09-29] MEDS ORDERED: Neomycin/Polymy/Dex OPHTH.OIN* 3.5 GM ONE (12:56)
[2018-09-29] MEDS ORDERED: Tropicamide 1% OPTH.SOL* BTL ONE (12:56)
[2018-09-29] MEDS ORDERED: Cyclopentolate 1% OPTH.SOL* 2 ML BTL ONE (12:56)
[2018-09-29] MEDS ORDERED: Tetracaine 0.5% OPTH.SOL 4 ML* 1 DROP BTL ONE (12:56)
[2018-09-29] MEDS ORDERED: Ketorolac 0.5% OPHTH (NF) 0.5 % 5 ML BTL ONE (12:56)
[2018-09-29] MEDS ORDERED: Lidocaine 1%* 5 ML VIAL ONE (12:56)
[2018-09-29 13:12] VITALS: BP 132/64
--- NOTE | 2018-09-29 18:58 | OP ---
OPERATIVE REPORT: DATE OF OPERATION: 09/29/18 - [facility] DATE OF : 47 SURGEON: Jaylon Mcghee MD TWINE WINDER: None. ANESTHESIA: Topical with intravenous sedation. PRE-OP DIAGNOSIS: Cataract with astigmatism and glaucoma, right eye. POST-OP DIAGNOSIS: Cataract with astigmatism and glaucoma, right eye. OPERATIVE PROCEDURE: Phacoemulsification and cataract extraction with posterior chamber toric intraocular lens implant, right eye and iStent implant, right eye. COMPLICATIONS: None. BLOOD LOSS: None. DESCRIPTION OF PROCEDURE: The patient was seen preoperatively in the holding area, where a colleen was made at the 6 o'clock position of the limbus while the patient was sitting upright. The patient was subsequently brought to the operating room and the right eye was given a drop of tetracaine. The patient was given intravenous sedation. The patient's right eye was prepped and draped in the usual sterile fashion for ophthalmic surgery, and attention was then directed to the right eye where a speculum was placed. A paracentesis was created at the 11:30 position and 0.1 cc of 1% preservative-free lidocaine was injected into the anterior chamber followed by DisCoVisc. The eye was digitally stabilized while a 2.75 mm keratome was used to create a triplanar clear corneal incision at the 9 o'clock position. A continuous curvilinear capsulorrhexis was created with a cystotome and Utrata forceps. BSS on a cannula was used to hydrodissect the lens from the capsule. Phacoemulsification was performed in a [id number] technique to create 4 fragments, which were removed. Residual cortical material was removed with irrigation and aspiration. ProVisc was used to inflate the capsular bag. The ORA was employed to help guide the lens choice. An SN6AT4 18.5 diopter lens was opened. It was then folded and inserted into the capsular bag. The lens was rotated to the 2-degree axis and held in place with a Sinskey hook while ProVisc was removed from posterior to the lens. DisCoVisc was then placed anterior to the lens to deepen the anterior chamber and on the surface of the cornea. The patient's head was rotated away from the surgeon and the microscope was rotated toward the surgeon. An iStent on its malt house operator was introduced into the anterior chamber. A gonioprism was placed on the surface of the eye. Under direct visualization, the iStent was inserted into the inferonasal trabecular meshwork. The malt house operator and gonioprism were removed. The patient's head and the microscope were returned to neutral position. Irrigation and aspiration was performed to remove viscoelastic from the eye. The lens remained at the appropriate axial alignment. BSS on a cannula was used to hydrate the corneal wound at the end of the case. At this point, the eye was inspected. The eye pressure appeared normal. The wound was watertight. The pupil was round. The lens was centered, stable and axially aligned. The iStent was in good position. The speculum was removed. Topical Maxitrol ointment was placed on the surface of the eye. The eye was closed, patched, and shielded. The patient was sent to recovery room in stable condition with postoperative instructions and followup appointment given. [id number]/[facility] #: [id number] CORNEL
== END 2018-09-29 13:22 | disposition home or self-care (01) ==
LOC: OREAST 10:43
PROVIDERS: ATTEND Ophthalmology
DX: H25.11 Age-related nuclear cataract, right eye (principal); H40.10X1 Unspecified open-angle glaucoma, mild stage; I10 Essential (primary) hypertension; Z87.891 Personal history of nicotine dependence; F41.8 Other specified anxiety disorders; F03.90 Unspecified dementia, unspecified severity, without behavioral disturbance, psychotic disturbance, mood disturbance, and anxiety
CPT/HCPCS: A9270-GY; C1783; J2250; J2704; J3010; V2787

== ENCOUNTER 2018-10-06 09:06 | Day surgery (SDC) | payer MEDICARE, BC ==
[~2018-10-06 09:06] MED LIST changes: -Cyclopentolate 1% OPTH.SOL* 2 ML BTL ONE; -Ketorolac 0.5% OPHTH (NF) 0.5 % 5 ML BTL ONE; -Lidocaine 1%* 5 ML VIAL ONE; -Neomycin/Polymy/Dex OPHTH.OIN* 3.5 GM ONE; -Phenylephrine OPHTH SOL 2.5%* 2 ML ONE; -Tetracaine 0.5% OPTH.SOL 4 ML* 1 DROP BTL ONE; -Tropicamide 1% OPTH.SOL* BTL ONE
[2018-10-06] MEDS ORDERED: Midazolam* 1 MG/ML 5 ML VIAL (5 MG) ONE (09:21)
[2018-10-06] MEDS ORDERED: fentaNYL* 50 MCG/ML 2 ML VIAL (100 MCG VIAL) ONE (09:21)
[2018-10-06] MEDS ORDERED: Midazolam* 1 MG/ML 2 ML VIAL (2 MG) ONE (11:22)
[2018-10-06] MEDS ORDERED: Neomycin/Polymy/Dex OPHTH.OIN* 3.5 GM ONE (11:27)
[2018-10-06] MEDS ORDERED: Ketorolac 0.5% OPHTH (NF) 0.5 % 5 ML BTL ONE (11:27)
[2018-10-06] MEDS ORDERED: Cyclopentolate 1% OPTH.SOL* 2 ML BTL ONE (11:27)
[2018-10-06] MEDS ORDERED: Lidocaine 1%* 5 ML VIAL ONE (11:27)
[2018-10-06] MEDS ORDERED: Tropicamide 1% OPTH.SOL* BTL ONE (11:27)
[2018-10-06] MEDS ORDERED: Tetracaine 0.5% OPTH.SOL 4 ML* 1 DROP BTL ONE (11:27)
[2018-10-06] MEDS ORDERED: Phenylephrine OPHTH SOL 2.5%* 2 ML ONE (11:27)
[2018-10-06 11:46] VITALS: BP 123/54
--- NOTE | 2018-10-06 13:11 | OP ---
AMENDED REPORT PER DR. MCGHEE'S OFFICE DATE OF OPERATION: 10/06/18 - [facility] DATE OF : 47 SURGEON: Jaylon Mcghee MD. MAMMALOGY TEACHER: None. ANESTHESIA: Topical with intravenous sedation. PRE-OP DIAGNOSIS: Cataract, glaucoma, and astigmatism, left eye. POST-OP DIAGNOSIS: Cataract, glaucoma, and astigmatism, left eye. OPERATIVE PROCEDURES: Phacoemulsification and cataract extraction with posterior chamber intraocular toric lens and iStent implant, left eye; anterior vitrectomy for capsular zonular dehiscence. COMPLICATIONS: Capsule zonular dehiscence. DESCRIPTION OF PROCEDURE: The patient was brought to the operating room, given intravenous sedation. A drop of Tetracaine was placed in her left eye. The patient was prepped and draped in the usual sterile fashion for ophthalmic surgery and attention was directed to the left eye where a speculum was placed. A paracentesis was created at the 5 o'clock position and 0.1 cc of 1% preservative- free Lidocaine was injected into the anterior chamber followed by DisCoVisc. The eye was digitally stabilized while a 2.75 mm keratome was used to create a triplanar clear corneal incision at the 3 o'clock position. A continuous curvilinear capsulorrhexis was performed using a cystotome and Utrata forceps. BSS on a cannula was used to hydrodissect the lens from the capsule. Phacoemulsification was performed in a [id number]-[id number] technique to create four fragments which were removed. Residual cortical material was removed with irrigation and aspiration. ProVisc was used to inflate the eye. The intraocular pressure was measured with an intraoperative tonometer. The ORA instrument was employed. The lens chosen was an SN6AT4 19.5 diopter lens. That lens was loaded and inserted into the capsular bag. It was dialed to appropriate axial alignment, which was approximately 20 degrees. Irrigation and aspiration was performed to remove ProVisc from behind the lens. DisCoVisc was used to deepen the anterior chamber and coat the surface of the cornea. The patient's head was rotated away from the surgeon and the microscope was rotated towards the surgeon. A corneal prism was placed in the surface of the eye. An iStent on its plumber gasfitter was introduced into the anterior chamber. Under direct visualization, the iStent was placed into the nasal trabecular meshwork. The iStent plumber gasfitter and the corneal prism were removed. The patient' s head and microscope were returned to an upright position. Irrigation and aspiration was performed. We removed the viscoelastic from the eye. At this point, it was noted inferiorly at approximately the 3 o'clock hours of zonular dehiscence had occurred. A small amount of vitreous was prolapsing anteriorly from this area. Thus, a second paracentesis port was created at the 1 o'clock position. An anterior vitrector was introduced into the anterior chamber and in a bimodal fashion it was employed to remove vitreous from the anterior chamber and from under the iris and anterior to the prolapsed lens capsule. Once it was shortened, there was no vitreous remaining. Irrigation and aspiration was performed to remove viscoelastic from in front of the lens. The wounds were hydrated with BSS. The lens appeared stable in the capsular bag and the capsular bag seemed stable within the eye. Because the dehiscence was inferior, it was felt that gravity would allow the lens to be positioned properly and remain centrally located. At the end of the case, the pupil was round. The lens was centered and stable. The eye pressure appeared normal and the wound was water tight. The speculum was removed and topical Maxitrol ointment was placed on the surface of the eye. The eye was closed, patched, and shielded. The patient was sent to recovery room in stable condition with postoperative instructions, and a followup appointment given. [id number]/[facility] #: [id number] CORNEL
== END 2018-10-06 11:57 | disposition home or self-care (01) ==
LOC: OREAST 09:06
PROVIDERS: ATTEND Ophthalmology
DX: H25.12 Age-related nuclear cataract, left eye (principal); H40.10X1 Unspecified open-angle glaucoma, mild stage; I10 Essential (primary) hypertension; Z87.891 Personal history of nicotine dependence; F41.8 Other specified anxiety disorders
CPT/HCPCS: A9270-GY; C1783; J2250; J3010; V2787

== ENCOUNTER 2021-02-20 20:19 | Inpatient (IN) ==
[2021-02-20 22:12] LABS: ABS Basophils 0.1 10^3/ul (0-0.2); ABS Eosinophils 0.1 10^3/ul (0-0.6); ABS Lymphocytes 1.2 10^3/ul (1.0-4.8); ABS Monocytes 1.3 10^3/ul (0-0.8); Eosinophil % 1.2 %; Hematocrit 38 % (35-47); Hemoglobin 12.6 g/dL (12.0-16.0); Lymphocyte % 10.6 %; Mean Corpuscular HGB Conc 34 g/dL (31-36); Mean Corpuscular Hemoglobin 30 pg (27-31); Mean Corpuscular Volume 89 fL (80-97); Platelet Count 378 10^3/uL (150-450); Red Blood Count 4.21 10^6 /uL (3.70-4.87); Red Cell Distribution Width 14 % (10-15); White Blood Count 11.7 10^3/uL (3.5-10.8)
[2021-02-20 22:27] LABS: Albumin 3.9 g/dL (3.2-5.2); Albumin/Globulin Ratio 1.3 (1-3); C Reactive Protein 23.13 mg/L (<8.01); Calcium 9.2 mg/dL (8.6-10.3); Globulin 3.1 g/dL (2-4); Potassium 3.9 mmol/L (3.5-5.0); Total Bilirubin 0.4 mg/dL (0.2-1.0)
[2021-02-20] MEDS ORDERED: Iodixanol (CONTRAST) 320 MG/ML 100 ML SDV IV ONE (23:11)
[2021-02-21] MEDS: Heparin DRIP 25,000 UNITS BAG 25,000 UNITS/500 ML BAG IV SCH ×2 (04:59→05:00)
[2021-02-21] MEDS ORDERED: Heparin 5000 UNITS/ML 1 mL VIAL IV SCH (05:00)
[2021-02-21 05:02] LABS: Hematocrit 34 % (35-47); Hemoglobin 12.1 g/dL (12.0-16.0); Mean Corpuscular HGB Conc 35 g/dL (31-36); Mean Corpuscular Hemoglobin 31 pg (27-31); Mean Corpuscular Volume 87 fL (80-97); Mean Platelet Volume 7.1 fL (7.4-10.4); Platelet Count 363 10^3/uL (150-450); Red Cell Distribution Width 14 % (10-15); White Blood Count 19.9 10^3/uL (3.5-10.8)
[2021-02-21 05:33] LABS: Rapid COVID-19 Molecular Undetected (Undetected)
[2021-02-21] MEDS ORDERED: Piperacillin/Tazobac ADVAN 3.375 GM in NS 0.9% 100 ml BAG 100 ML IV ONE (06:03)
[2021-02-21] MEDS ORDERED: NS 0.9% 1000 ml BAG 1,000 ML IV ONE (06:10)
[2021-02-21] MEDS ORDERED: Zosyn per Pharmacy NOTE FOLLOW UP SCH (07:00)
[2021-02-21 07:07] LABS: Influenza A Molecular Negative (Negative); Influenza B Molecular Negative (Negative)
[2021-02-21 07:11] LABS: ABS Lymphocytes 1.4 10^3/ul (1.0-4.8); ABS Monocytes 1.8 10^3/ul (0-0.8); ABS Neutrophils 16.6 10^3/ul (1.5-7.7); Lymphocyte % 7.1 %
[2021-02-21 07:14] LABS: RBC Morphology Normal (Normal)
[2021-02-21] MEDS: ZOSYN 3.375 GM Q8H per EXTENDED INFUSION IV SCH ×2 (08:30→16:36)
[2021-02-21] MEDS: Enoxaparin 40 MG/0.4 ML SYR SUBCUT SCH (08:36)
[2021-02-21] MEDS: buPROPion SR 100 mg TAB.SR PO SCH (08:36)
[2021-02-21 17:36] LABS: Urine Appearance Clear; Urine Bilirubin Negative (Negative); Urine Blood Negative (Negative); Urine Color Yellow; Urine Glucose Negative (Negative); Urine Ketones Negative (Negative); Urine Nitrite Negative (Negative); Urine Protein Negative (Negative); Urine Specific Gravity 1.019 (1.002-1.030); Urine Urobilinogen Negative (Negative)
[2021-02-22] MEDS: ZOSYN 3.375 GM Q8H per EXTENDED INFUSION IV SCH ×3 (02:19→17:22)
[2021-02-22 06:45] LABS: ABS Basophils 0.1 10^3/ul (0-0.2); ABS Eosinophils 0.2 10^3/ul (0-0.6); ABS Lymphocytes 1.8 10^3/ul (1.0-4.8); ABS Monocytes 1.3 10^3/ul (0-0.8); ABS Neutrophils 13.4 10^3/ul (1.5-7.7); Hematocrit 32 % (35-47); Hemoglobin 11.1 g/dL (12.0-16.0); Lymphocyte % 10.6 %; Mean Corpuscular HGB Conc 35 g/dL (31-36); Mean Corpuscular Hemoglobin 31 pg (27-31); Mean Corpuscular Volume 88 fL (80-97); Mean Platelet Volume 7.3 fL (7.4-10.4); Platelet Count 336 10^3/uL (150-450); Red Blood Count 3.58 10^6 /uL (3.70-4.87); Red Cell Distribution Width 14 % (10-15); White Blood Count 16.7 10^3/uL (3.5-10.8)
[2021-02-22 06:52] LABS: Calcium 8.5 mg/dL (8.6-10.3); Potassium 2.8 mmol/L (3.5-5.0)
[2021-02-22] MEDS: buPROPion SR 100 mg TAB.SR PO SCH (08:51)
[2021-02-22] MEDS: Enoxaparin 40 MG/0.4 ML SYR SUBCUT SCH (08:51)
[2021-02-22] MEDS ORDERED: Potassium Chlor 20 meq TAB.ER PO ONE ×2 (14:04→21:00)
[2021-02-23] MEDS: ZOSYN 3.375 GM Q8H per EXTENDED INFUSION IV SCH ×4 (02:50→18:14)
[2021-02-23 08:10] LABS: ABS Lymphocytes 2.3 10^3/ul (1.0-4.8); ABS Monocytes 1.2 10^3/ul (0-0.8); ABS Neutrophils 11.8 10^3/ul (1.5-7.7); Eosinophil % 0.2 %; Hematocrit 30 % (35-47); Hemoglobin 10.5 g/dL (12.0-16.0); Lymphocyte % 15.1 %; Mean Corpuscular HGB Conc 35 g/dL (31-36); Mean Corpuscular Hemoglobin 31 pg (27-31); Mean Corpuscular Volume 89 fL (80-97); Mean Platelet Volume 7.3 fL (7.4-10.4); Platelet Count 370 10^3/uL (150-450); Red Blood Count 3.42 10^6 /uL (3.70-4.87); Red Cell Distribution Width 14 % (10-15); White Blood Count 15.4 10^3/uL (3.5-10.8)
[2021-02-23 08:28] LABS: Calcium 8.9 mg/dL (8.6-10.3); Magnesium 2.1 mg/dL (1.9-2.7); Potassium 3.4 mmol/L (3.5-5.0)
[2021-02-23] MEDS: buPROPion SR 100 mg TAB.SR PO SCH (08:28)
[2021-02-23] MEDS: Enoxaparin 40 MG/0.4 ML SYR SUBCUT SCH (08:30)
[2021-02-24] MEDS: ZOSYN 3.375 GM Q8H per EXTENDED INFUSION IV SCH ×3 (01:24→18:22)
[2021-02-24] MEDS: Enoxaparin 40 MG/0.4 ML SYR SUBCUT SCH (09:23)
[2021-02-24] MEDS: buPROPion SR 100 mg TAB.SR PO SCH (09:42)
[2021-02-25] MEDS: ZOSYN 3.375 GM Q8H per EXTENDED INFUSION IV SCH ×3 (02:33→17:28)
[2021-02-25 07:20] LABS: Calcium 8.4 mg/dL (8.6-10.3); Potassium 3.3 mmol/L (3.5-5.0)
[2021-02-25] MEDS ORDERED: Potassium Chlor 20 meq TAB.ER PO ONE (07:51)
[2021-02-25 08:16] LABS: ABS Basophils 0.1 10^3/ul (0-0.2); ABS Eosinophils 0.4 10^3/ul (0-0.6); ABS Lymphocytes 3.3 10^3/ul (1.0-4.8); ABS Monocytes 2.5 10^3/ul (0-0.8); ABS Neutrophils 12.1 10^3/ul (1.5-7.7); Hematocrit 27 % (35-47); Hemoglobin 9.3 g/dL (12.0-16.0); Lymphocyte % 18.1 %; Mean Corpuscular HGB Conc 35 g/dL (31-36); Mean Corpuscular Hemoglobin 31 pg (27-31); Mean Corpuscular Volume 90 fL (80-97); Mean Platelet Volume 7.9 fL (7.4-10.4); Nucleated Red Blood Cells % 0.2; Platelet Count 412 10^3/uL (150-450); Red Blood Count 2.99 10^6 /uL (3.70-4.87); Red Cell Distribution Width 13 % (10-15); White Blood Count 18.5 10^3/uL (3.5-10.8)
[2021-02-25 08:25] LABS: Magnesium 1.9 mg/dL (1.9-2.7)
[2021-02-25] MEDS ORDERED: Magnesium Sulfate IV 1GM/100ML 1 GM/100 ML BAG IV ONE (08:34)
[2021-02-25] MEDS: Enoxaparin 40 MG/0.4 ML SYR SUBCUT SCH (09:55)
[2021-02-25] MEDS: buPROPion SR 100 mg TAB.SR PO SCH (09:56)
[2021-02-25] MEDS: guaiFENesin 100 mg/5 ml LIQ unit dose cup PO PRN (17:23)
[2021-02-26] MEDS: ZOSYN 3.375 GM Q8H per EXTENDED INFUSION IV SCH ×4 (02:04→17:33)
[2021-02-26 06:52] LABS: Hematocrit 27 % (35-47); Hemoglobin 9.4 g/dL (12.0-16.0); Mean Corpuscular HGB Conc 35 g/dL (31-36); Mean Corpuscular Hemoglobin 31 pg (27-31); Mean Corpuscular Volume 89 fL (80-97); Mean Platelet Volume 7.4 fL (7.4-10.4); Platelet Count 396 10^3/uL (150-450); Red Blood Count 3.03 10^6 /uL (3.70-4.87); Red Cell Distribution Width 13 % (10-15)
[2021-02-26 07:11] LABS: Calcium 8.4 mg/dL (8.6-10.3); Potassium 3.3 mmol/L (3.5-5.0)
[2021-02-26 07:34] LABS: ABS Basophils 0.1 10^3/ul (0-0.2); ABS Eosinophils 0.2 10^3/ul (0-0.6); ABS Lymphocytes 1.9 10^3/ul (1.0-4.8); ABS Monocytes 1.8 10^3/ul (0-0.8); Eosinophil % 1.5 %; Lymphocyte % 14.7 %; RBC Morphology Normal (Normal)
[2021-02-26] MEDS ORDERED: Potassium Chlor 20 meq TAB.ER PO ONE (07:36)
[2021-02-26 08:43] LABS: C Reactive Protein 220.22 mg/L (<8.01)
[2021-02-26] MEDS: buPROPion SR 100 mg TAB.SR PO SCH (09:08)
[2021-02-26] MEDS: Enoxaparin 40 MG/0.4 ML SYR SUBCUT SCH (09:08)
[2021-02-26] MEDS ORDERED: Albuterol HFA INHALER 8 gm MDI INH PRN (14:06)
[2021-02-26] MEDS ORDERED: Albuterol/Ipratropium NEB.SOL (2.5/0.5 MG) 3 ML NEB.SOLN INH SCH ×2 (15:00→19:00)
[2021-02-26] MEDS ORDERED: SPIRIVA Respimat (tiotropium) 2.5 mcg/inh Inhaler INH SCH (15:00)
[2021-02-26] MEDS: guaiFENesin 100 mg/5 ml LIQ unit dose cup PO PRN (16:49)
[2021-02-26] MEDS ORDERED: Furosemide 40 mg/4 ml IV VIAL IV ONE (17:36)
[2021-02-26] MEDS: Albuterol/Ipratropium NEB.SOL (2.5/0.5 MG) 3 ML NEB.SOLN INH SCH ×3 (17:41→22:27)
[2021-02-26 20:21] LABS: Albumin 2.8 g/dL (3.2-5.2); Direct Bilirubin 0.1 mg/dL (0.03-0.18); Globulin 2.9 g/dL (2-4); Indirect Bilirubin 0.5 mg/dL (0.3-1.0); Total Bilirubin 0.6 mg/dL (0.2-1.0); Total Protein 5.7 g/dL (6.4-8.9)
[2021-02-26] MEDS: Fluticasone NASAL SPRAY 50MCG 16 gm SPRAY BTL BOTH NARES SCH (22:09)
[2021-02-27] MEDS ORDERED: Furosemide 20 mg/2 ml IV VIAL IV ONE (00:12)
[2021-02-27] MEDS: ZOSYN 3.375 GM Q8H per EXTENDED INFUSION IV SCH ×3 (01:38→17:45)
[2021-02-27] MEDS: Albuterol/Ipratropium NEB.SOL (2.5/0.5 MG) 3 ML NEB.SOLN INH SCH ×6 (03:08→23:09)
[2021-02-27 06:19] LABS: Hematocrit 29 % (35-47); Mean Corpuscular HGB Conc 35 g/dL (31-36); Mean Corpuscular Hemoglobin 30 pg (27-31); Mean Corpuscular Volume 87 fL (80-97); Mean Platelet Volume 7.3 fL (7.4-10.4); Platelet Count 489 10^3/uL (150-450); Red Blood Count 3.32 10^6 /uL (3.70-4.87); Red Cell Distribution Width 13 % (10-15); White Blood Count 17.7 10^3/uL (3.5-10.8)
[2021-02-27] MEDS ORDERED: Potassium Chlor 20 meq TAB.ER PO ONE (06:33)
[2021-02-27 06:40] LABS: Calcium 8.8 mg/dL (8.6-10.3); Magnesium 1.9 mg/dL (1.9-2.7); Potassium 3.6 mmol/L (3.5-5.0)
[2021-02-27 06:44] LABS: ABS Lymphocytes 1.6 10^3/ul (1.0-4.8); ABS Monocytes 1.9 10^3/ul (0-0.8); ABS Neutrophils 14.2 10^3/ul (1.5-7.7)
[2021-02-27] MEDS ORDERED: Magnesium Sulfate IV 1GM/100ML 1 GM/100 ML BAG IV ONE (06:51)
[2021-02-27] MEDS ORDERED: Furosemide 40 mg/4 ml IV VIAL IV ONE (08:33)
[2021-02-27] MEDS: Fluticasone NASAL SPRAY 50MCG 16 gm SPRAY BTL BOTH NARES SCH (08:47)
[2021-02-27] MEDS: Enoxaparin 40 MG/0.4 ML SYR SUBCUT SCH (08:47)
[2021-02-27] MEDS: buPROPion SR 100 mg TAB.SR PO SCH (08:48)
[2021-02-27 09:38] LABS: PCO2 Arterial 39 mmHg (35-45); PO2 Arterial 60 mmHg (80-100)
[2021-02-27] MEDS ORDERED: Bumetanide IV 0.25 MG/ML 4 ml VIAL (1 mg) SLOW PUSH ONE (14:07)
[2021-02-27 16:45] LABS: Calcium 8.9 mg/dL (8.6-10.3); Potassium 3.6 mmol/L (3.5-5.0)
[2021-02-28] MEDS: ZOSYN 3.375 GM Q8H per EXTENDED INFUSION IV SCH ×3 (03:04→20:07)
[2021-02-28] MEDS: Albuterol/Ipratropium NEB.SOL (2.5/0.5 MG) 3 ML NEB.SOLN INH SCH ×6 (03:05→23:18)
[2021-02-28] MEDS ORDERED: Furosemide 40 mg/4 ml IV VIAL IV SLOW PU ONE ×2 (03:08→09:22)
[2021-02-28 04:58] LABS: Hematocrit 29 % (35-47); Hemoglobin 10.2 g/dL (12.0-16.0); Mean Corpuscular HGB Conc 35 g/dL (31-36); Mean Corpuscular Hemoglobin 31 pg (27-31); Mean Corpuscular Volume 89 fL (80-97); Mean Platelet Volume 7.5 fL (7.4-10.4); Platelet Count 497 10^3/uL (150-450); Red Blood Count 3.29 10^6 /uL (3.70-4.87); Red Cell Distribution Width 14 % (10-15); White Blood Count 18.6 10^3/uL (3.5-10.8)
[2021-02-28 05:09] LABS: PCO2 Arterial 42 mmHg (35-45); PO2 Arterial 77 mmHg (80-100)
[2021-02-28 05:17] LABS: Albumin 3.2 g/dL (3.2-5.2); Albumin/Globulin Ratio 0.9 (1-3); Globulin 3.5 g/dL (2-4); Potassium 3.3 mmol/L (3.5-5.0); Total Bilirubin 0.5 mg/dL (0.2-1.0); Total Protein 6.7 g/dL (6.4-8.9)
[2021-02-28 05:18] LABS: Troponin I 0.01 ng/mL (<0.03)
[2021-02-28 07:43] LABS: ABS Basophils 0.2 10^3/ul (0-0.2); ABS Lymphocytes 1.8 10^3/ul (1.0-4.8); ABS Monocytes 1.7 10^3/ul (0-0.8); ABS Neutrophils 14.8 10^3/ul (1.5-7.7); Eosinophil % 0.2 %; Lymphocyte % 9.8 %
[2021-02-28] MEDS: Enoxaparin 40 MG/0.4 ML SYR SUBCUT SCH (07:53)
[2021-02-28] MEDS: buPROPion SR 100 mg TAB.SR PO SCH (07:54)
[2021-02-28] MEDS: Fluticasone NASAL SPRAY 50MCG 16 gm SPRAY BTL BOTH NARES SCH (08:06)
[2021-02-28] MEDS ORDERED: Azithromycin 500 mg/250 ml NS 500 MG/250 ML BAG IVPB SCH (16:00)
[2021-02-28] MEDS: methylPREDNISolone SOD 40 mg/ml 1 ml VIAL IV SCH (18:15)
[2021-02-28] MEDS: DOXYcycline 100 MG in NS 0.9% 250 ml 250 ML IVPB SCH (18:15)
[2021-02-28 19:09] LABS: Cyclic Citrullinated Pept IgG <15.6 U
[2021-03-01] MEDS: methylPREDNISolone SOD 40 mg/ml 1 ml VIAL IV SCH ×3 (01:41→15:36)
[2021-03-01] MEDS: ZOSYN 3.375 GM Q8H per EXTENDED INFUSION IV SCH ×3 (01:42→17:08)
[2021-03-01] MEDS: Albuterol/Ipratropium NEB.SOL (2.5/0.5 MG) 3 ML NEB.SOLN INH SCH ×4 (02:48→20:19)
[2021-03-01] MEDS: DOXYcycline 100 MG in NS 0.9% 250 ml 250 ML IVPB SCH ×2 (05:48→15:36)
[2021-03-01] MEDS: buPROPion SR 100 mg TAB.SR PO SCH (08:22)
[2021-03-01] MEDS: Enoxaparin 40 MG/0.4 ML SYR SUBCUT SCH (08:22)
[2021-03-01] MEDS: Fluticasone NASAL SPRAY 50MCG 16 gm SPRAY BTL BOTH NARES SCH (08:23)
[2021-03-01] MEDS ORDERED: Furosemide 40 mg/4 ml IV VIAL IV ONE (10:33)
[2021-03-02] MEDS: methylPREDNISolone SOD 40 mg/ml 1 ml VIAL IV SCH ×3 (00:32→16:46)
[2021-03-02] MEDS: ZOSYN 3.375 GM Q8H per EXTENDED INFUSION IV SCH ×3 (00:55→18:29)
[2021-03-02] MEDS: Albuterol/Ipratropium NEB.SOL (2.5/0.5 MG) 3 ML NEB.SOLN INH SCH ×4 (02:37→19:30)
[2021-03-02] MEDS: DOXYcycline 100 MG in NS 0.9% 250 ml 250 ML IVPB SCH ×2 (04:57→16:46)
[2021-03-02] MEDS: Enoxaparin 40 MG/0.4 ML SYR SUBCUT SCH (08:29)
[2021-03-02] MEDS: Fluticasone NASAL SPRAY 50MCG 16 gm SPRAY BTL BOTH NARES SCH (08:30)
[2021-03-02] MEDS: buPROPion SR 100 mg TAB.SR PO SCH (08:30)
[2021-03-02 10:45] LABS: Hematocrit 30 % (35-47); Hemoglobin 10.1 g/dL (12.0-16.0); Mean Corpuscular HGB Conc 33 g/dL (31-36); Mean Corpuscular Hemoglobin 29 pg (27-31); Mean Corpuscular Volume 89 fL (80-97); Mean Platelet Volume 7.2 fL (7.4-10.4); Platelet Count 624 10^3/uL (150-450); Red Blood Count 3.43 10^6 /uL (3.70-4.87); Red Cell Distribution Width 14 % (10-15); White Blood Count 16.1 10^3/uL (3.5-10.8)
[2021-03-02 11:17] LABS: Albumin 2.9 g/dL (3.2-5.2); Potassium 3.5 mmol/L (3.5-5.0); Total Bilirubin 0.4 mg/dL (0.2-1.0)
[2021-03-02 11:23] LABS: Albumin/Globulin Ratio 1.1 (1-3); Globulin 2.6 g/dL (2-4); Phosphorus 2.8 mg/dL (2.5-5.0); Total Protein 5.5 g/dL (6.4-8.9)
[2021-03-02] MEDS ORDERED: Furosemide 40 mg/4 ml IV VIAL IV SLOW PU ONE (15:22)
[2021-03-02] MEDS ORDERED: Potassium Chlor 20 meq TAB.ER PO ONE (16:21)
[2021-03-03] MEDS: methylPREDNISolone SOD 40 mg/ml 1 ml VIAL IV SCH ×3 (00:36→19:50)
[2021-03-03] MEDS: Albuterol/Ipratropium NEB.SOL (2.5/0.5 MG) 3 ML NEB.SOLN INH SCH ×4 (02:25→19:34)
[2021-03-03] MEDS: DOXYcycline 100 MG in NS 0.9% 250 ml 250 ML IVPB SCH ×2 (04:18→17:15)
[2021-03-03 05:45] LABS: Hematocrit 28 % (35-47); Hemoglobin 9.8 g/dL (12.0-16.0); Mean Corpuscular HGB Conc 36 g/dL (31-36); Mean Corpuscular Hemoglobin 31 pg (27-31); Mean Corpuscular Volume 88 fL (80-97); Mean Platelet Volume 7.3 fL (7.4-10.4); Platelet Count 586 10^3/uL (150-450); Red Blood Count 3.16 10^6 /uL (3.70-4.87); Red Cell Distribution Width 13 % (10-15); White Blood Count 16.8 10^3/uL (3.5-10.8)
[2021-03-03 06:03] LABS: Calcium 8.9 mg/dL (8.6-10.3); Magnesium 1.9 mg/dL (1.9-2.7); Phosphorus 2.5 mg/dL (2.5-5.0); Potassium 3.5 mmol/L (3.5-5.0)
[2021-03-03] MEDS ORDERED: Potassium Chlor 20 meq TAB.ER PO ONE (07:03)
[2021-03-03 07:51] LABS: ABS Basophils 0.1 10^3/ul (0-0.2); ABS Eosinophils 0.1 10^3/ul (0-0.6); ABS Lymphocytes 1.1 10^3/ul (1.0-4.8); ABS Monocytes 1.1 10^3/ul (0-0.8); ABS Neutrophils 14.6 10^3/ul (1.5-7.7); Eosinophil % 0.4 %; Lymphocyte % 6.3 %
[2021-03-03] MEDS: Enoxaparin 40 MG/0.4 ML SYR SUBCUT SCH (09:29)
[2021-03-03] MEDS: buPROPion SR 100 mg TAB.SR PO SCH (09:30)
[2021-03-03] MEDS ORDERED: Piperacillin/Tazobac ADVAN 3.375 GM in NS 0.9% 100 ml BAG 100 ML IV ONE (09:41)
[2021-03-03] MEDS ORDERED: Zosyn per Pharmacy NOTE FOLLOW UP SCH (10:00)
[2021-03-03] MEDS ORDERED: Furosemide 40 mg/4 ml IV VIAL IV ONE (14:04)
[2021-03-03 14:55] LABS: JO-1 Antibody <0.2 U; SS-B/La Antibody <0.2 U; Sm (Smith) IgG Antibody <0.2 U
[2021-03-03] MEDS: ZOSYN 3.375 GM Q8H per EXTENDED INFUSION IV SCH ×2 (16:39→22:45)
[2021-03-04] MEDS: Albuterol/Ipratropium NEB.SOL (2.5/0.5 MG) 3 ML NEB.SOLN INH SCH ×4 (02:19→19:48)
[2021-03-04] MEDS: DOXYcycline 100 MG in NS 0.9% 250 ml 250 ML IVPB SCH ×2 (04:20→17:34)
[2021-03-04 05:43] LABS: Hematocrit 30 % (35-47); Hemoglobin 9.9 g/dL (12.0-16.0); Mean Corpuscular HGB Conc 34 g/dL (31-36); Mean Corpuscular Hemoglobin 30 pg (27-31); Mean Corpuscular Volume 90 fL (80-97); Mean Platelet Volume 7.4 fL (7.4-10.4); Platelet Count 621 10^3/uL (150-450); Red Blood Count 3.29 10^6 /uL (3.70-4.87); Red Cell Distribution Width 13 % (10-15); White Blood Count 17.8 10^3/uL (3.5-10.8)
[2021-03-04 06:02] LABS: Calcium 8.8 mg/dL (8.6-10.3); Magnesium 1.9 mg/dL (1.9-2.7); Phosphorus 3.9 mg/dL (2.5-5.0); Potassium 4.1 mmol/L (3.5-5.0)
[2021-03-04] MEDS: ZOSYN 3.375 GM Q8H per EXTENDED INFUSION IV SCH ×2 (07:29→17:25)
[2021-03-04] MEDS: methylPREDNISolone SOD 40 mg/ml 1 ml VIAL IV SCH ×2 (09:01→20:27)
[2021-03-04] MEDS: Enoxaparin 40 MG/0.4 ML SYR SUBCUT SCH (09:01)
[2021-03-04] MEDS: Pantoprazole VIAL 40 MG VIAL IV SCH (09:01)
[2021-03-04] MEDS: buPROPion SR 100 mg TAB.SR PO SCH (09:01)
[2021-03-04] MEDS ORDERED: Furosemide 40 mg/4 ml IV VIAL IV ONE (09:52)
[2021-03-05] MEDS: ZOSYN 3.375 GM Q8H per EXTENDED INFUSION IV SCH ×3 (01:00→16:52)
[2021-03-05] MEDS: Albuterol/Ipratropium NEB.SOL (2.5/0.5 MG) 3 ML NEB.SOLN INH SCH (03:06)
[2021-03-05] MEDS: DOXYcycline 100 MG in NS 0.9% 250 ml 250 ML IVPB SCH ×2 (06:09→17:39)
[2021-03-05] MEDS ORDERED: Albuterol/Ipratropium NEB.SOL (2.5/0.5 MG) 3 ML NEB.SOLN INH PRN (06:49)
[2021-03-05 06:51] LABS: ABS Lymphocytes 1.8 10^3/ul (1.0-4.8); ABS Monocytes 1.1 10^3/ul (0-0.8); ABS Neutrophils 15.4 10^3/ul (1.5-7.7); Eosinophil % 0.1 %
[2021-03-05 06:58] LABS: Calcium 8.2 mg/dL (8.6-10.3)
[2021-03-05 07:19] LABS: Hematocrit 30 % (35-47); Hemoglobin 10.1 g/dL (12.0-16.0); Mean Corpuscular HGB Conc 34 g/dL (31-36); Mean Corpuscular Hemoglobin 30 pg (27-31); Mean Corpuscular Volume 89 fL (80-97); Mean Platelet Volume 7.6 fL (7.4-10.4); Platelet Count 610 10^3/uL (150-450); Red Blood Count 3.38 10^6 /uL (3.70-4.87); Red Cell Distribution Width 14 % (10-15); White Blood Count 18.4 10^3/uL (3.5-10.8)
[2021-03-05] MEDS ORDERED: NS 0.9% 100 ml BAG 100 ML ONE (08:26)
[2021-03-05] MEDS: methylPREDNISolone SOD 40 mg/ml 1 ml VIAL IV SCH ×2 (08:29→21:00)
[2021-03-05] MEDS: Pantoprazole VIAL 40 MG VIAL IV SCH (08:29)
[2021-03-05] MEDS: buPROPion SR 100 mg TAB.SR PO SCH (08:30)
[2021-03-05] MEDS: Enoxaparin 40 MG/0.4 ML SYR SUBCUT SCH (08:30)
[2021-03-05] MEDS ORDERED: Furosemide 40 mg/4 ml IV VIAL IV SLOW PU ONE (14:57)
[2021-03-06] MEDS: ZOSYN 3.375 GM Q8H per EXTENDED INFUSION IV SCH ×3 (00:44→16:27)
[2021-03-06] MEDS ORDERED: NS 0.9% 250 ml 250 ML ONE (04:35)
[2021-03-06] MEDS: DOXYcycline 100 MG in NS 0.9% 250 ml 250 ML IVPB SCH ×2 (04:37→16:28)
[2021-03-06 05:20] LABS: Calcium 8.4 mg/dL (8.6-10.3); Phosphorus 3.6 mg/dL (2.5-5.0)
[2021-03-06] MEDS: buPROPion SR 100 mg TAB.SR PO SCH (08:40)
[2021-03-06] MEDS: Enoxaparin 40 MG/0.4 ML SYR SUBCUT SCH (08:41)
[2021-03-06] MEDS ORDERED: Dextran 70/Hypromellose Tears Eye Drops 15 ml BTL (for Artificials Tears) BOTH EYES PRN (11:36)
[2021-03-07] MEDS: ZOSYN 3.375 GM Q8H per EXTENDED INFUSION IV SCH ×3 (02:16→16:14)
[2021-03-07] MEDS: DOXYcycline 100 MG in NS 0.9% 250 ml 250 ML IVPB SCH (05:52)
[2021-03-07] MEDS: buPROPion SR 100 mg TAB.SR PO SCH (09:03)
[2021-03-07] MEDS: Enoxaparin 40 MG/0.4 ML SYR SUBCUT SCH (09:04)
[2021-03-08] MEDS: ZOSYN 3.375 GM Q8H per EXTENDED INFUSION IV SCH ×3 (01:48→19:52)
[2021-03-08] MEDS: Enoxaparin 40 MG/0.4 ML SYR SUBCUT SCH (11:00)
[2021-03-08] MEDS: buPROPion SR 100 mg TAB.SR PO SCH (11:00)
[2021-03-08 17:43] LABS: Rapid COVID-19 Molecular Undetected (Undetected)
[2021-03-09] MEDS: Enoxaparin 40 MG/0.4 ML SYR SUBCUT SCH (10:37)
[2021-03-09] MEDS: buPROPion SR 100 mg TAB.SR PO SCH (10:40)
[2021-03-09 12:17] VITALS: BP 107/47
== END 2021-03-09 13:51 | DRG 871 ==
LOC: ED 20:19 → EDHOLD 02-21 04:36 → SUATTDRO 02-21 04:36 → MED 02-21 10:19 → ICU 02-27 12:28 → MEDTELE 03-07 17:56
PROVIDERS: ADMIT Internal Medicine; ATTEND Internal Medicine

== ENCOUNTER 2023-05-17 17:33 | Inpatient (IN) ==
[2023-05-17] MEDS: Lactated Ringers 1000 ml BAG 1,000 ML IV ONE (18:35)
[2023-05-17 18:57] LABS: Hematocrit 38.1 % (35-45); Hemoglobin 12.9 g/dL (11.5-14.3); Mean Corpuscular Hemoglobin 30.6 pg (27-33); Mean Corpuscular Hgb Conc 33.9 g/dL (31-36); Mean Corpuscular Volume 90.5 fL (80-97); Mean Platelet Volume 7.6 fL (7.5-11.2); Platelet Count 292 10^3/uL (150-450); Red Blood Count 4.22 10^6/uL (3.63-4.92); Red Cell Distribution Width 13.6 % (12-17); White Blood Count 9.9 10^3/uL (3.8-11.8)
[2023-05-17 19:18] LABS: Albumin 3.9 g/dL (3.2-5.2); Albumin/Globulin Ratio 1.6 (1-3); C Reactive Protein 18.48 mg/L (<8.01); Calcium 8.8 mg/dL (8.6-10.3); Creatinine, Serum 0.89 mg/dL (0.51-0.95); Globulin 2.5 g/dL (2-4); Potassium 3.9 mmol/L (3.5-5.0); Total Bilirubin 0.4 mg/dL (0.2-1.0); Total Protein 6.4 g/dL (6.4-8.9); eGFR CKD-EPI 67.1 (>60)
[2023-05-17 20:19] LABS: ABS Basophils 0.1 10^3/uL (0.0-0.1); ABS Eosinophils 0.2 10^3/uL (0.0-0.5); ABS Lymphocytes 1.5 10^3/uL (1.0-4.8); ABS Monocytes 1.6 10^3/uL (0.0-0.9); ABS Neutrophils 6.5 10^3/uL (1.5-7.6); Lymphocyte % 15.1 %
[2023-05-17 20:25] LABS: Urine Appearance Cloudy; Urine Bilirubin Negative (Negative); Urine Blood Negative (Negative); Urine Color Yellow; Urine Glucose Negative (Negative); Urine Ketones Negative (Negative); Urine Nitrite Negative (Negative); Urine Protein Negative (Negative); Urine Specific Gravity 1.014 (1.002-1.030); Urine Urobilinogen Negative (Negative)
[2023-05-17 20:33] LABS: High Sensitivity Troponin 1 Hr 8 pg/mL (<15)
[2023-05-17 20:49] LABS: Urine Bacteria Absent (Absent); Urine Red Blood Cell 1+(3-5/hpf) (Absent); Urine White Blood Cell 1+(6-10/hpf) (Absent)
[2023-05-17] MEDS ORDERED: Al Hydrox/Mg Hydrox/Simet LIQ 30 ML UDC PO PRN (21:57)
[2023-05-17] MEDS ORDERED: Polyethylene Glycol 3350 17 GM PACKET PO PRN (21:57)
[2023-05-17] MEDS: Dexamethasone IV 4 MG/ML VIAL 1 ml VIAL IV SLOW PU ONE (22:05)
[2023-05-17] MEDS: Enoxaparin 40 MG/0.4 ML SYR SUBCUT SCH (22:05)
[2023-05-17] MEDS: DOXYcycline 100 MG in NS 0.9% 250 ml 250 ML IVPB SCH (22:33)
[2023-05-17] MEDS: Remdesivir 100 mg Vial 200 MG in NS 0.9% 250 ml 210 ML IV ONE (23:42)
[2023-05-18 07:41] LABS: INR 1.05 (0.83-1.13)
[2023-05-18] MEDS: Latanoprost 0.005% 2.5 ml BTL BOTH EYES SCH (21:27)
[2023-05-18] MEDS: Remdesivir 100 mg Vial 100 MG in NS 0.9% 250 ml 230 ML IV SCH (21:47)
[2023-05-19 07:48] LABS: INR 1.05 (0.83-1.13)
[2023-05-19 07:55] LABS: Albumin 3.6 g/dL (3.2-5.2); Albumin/Globulin Ratio 1.6 (1-3); Calcium 8.6 mg/dL (8.6-10.3); Creatinine, Serum 0.82 mg/dL (0.51-0.95); Globulin 2.3 g/dL (2-4); Potassium 3.5 mmol/L (3.5-5.0); Total Bilirubin 0.3 mg/dL (0.2-1.0); Total Protein 5.9 g/dL (6.4-8.9); eGFR CKD-EPI 74.1 (>60)
[2023-05-20 06:30] LABS: INR 1.02 (0.83-1.13)
[2023-05-20 10:42] VITALS: BP 134/80
== END 2023-05-20 14:45 | disposition home or self-care (01) | DRG 177 ==
LOC: EDHOLD 17:33 → ED 17:33 → SUATTDRO 21:57 → MED 05-18 00:36
PROVIDERS: ADMIT Internal Medicine; ATTEND Internal Medicine

== ENCOUNTER 2023-07-10 18:19 | Inpatient (IN) ==
[2023-07-10 20:33] LABS: ABS Basophils 0.1 10^3/uL (0.0-0.1); ABS Eosinophils 0.3 10^3/uL (0.0-0.5); ABS Lymphocytes 3.6 10^3/uL (1.0-4.8); ABS Monocytes 1.4 10^3/uL (0.0-0.9); ABS Neutrophils 5.5 10^3/uL (1.5-7.6); ABS Nucleated RBC 0.01 10^3/ul; Eosinophil % 2.6 %; Hematocrit 42.1 % (35-45); Hemoglobin 14.8 g/dL (11.5-14.3); Lymphocyte % 32.5 %; Mean Corpuscular Hemoglobin 31.3 pg (27-33); Mean Corpuscular Hgb Conc 35.1 g/dL (31-36); Mean Corpuscular Volume 89.1 fL (80-97); Platelet Count 369 10^3/uL (150-450); Red Blood Count 4.72 10^6/uL (3.63-4.92); Red Cell Distribution Width 13.8 % (12-17)
[2023-07-10 20:38] LABS: Urine Appearance Clear; Urine Bilirubin Negative (Negative); Urine Blood Negative (Negative); Urine Color Light-Yellow; Urine Glucose Negative (Negative); Urine Ketones Negative (Negative); Urine Nitrite Negative (Negative); Urine Protein Negative (Negative); Urine Specific Gravity 1.008 (1.002-1.030); Urine Urobilinogen Negative (Negative); Urine pH 5.5 (5.0-8.0)
[2023-07-10 20:40] LABS: INR 0.94 (0.83-1.13)
[2023-07-10 20:58] LABS: High Sens Troponin Baseline 7 pg/mL (<15)
[2023-07-10 21:21] LABS: ALT 66 U/L (7-52); Albumin 4.1 g/dL (3.2-5.2); Albumin/Globulin Ratio 1.5 (1-3); Alkaline Phosphatase 23 U/L (35-149); Blood Urea Nitrogen 19 mg/dL (6-24); CO2 Carbon Dioxide 24 mmol/L (22-32); Calcium 9.7 mg/dL (8.6-10.3); Chloride 103 mmol/L (101-111); Creatinine, Serum 1.02 mg/dL (0.51-0.95); Globulin 2.7 g/dL (2-4); Glucose 104 mg/dL (70-100); Sodium 139 mmol/L (135-145); Total Bilirubin 0.5 mg/dL (0.2-1.0); Total Protein 6.8 g/dL (6.4-8.9)
[2023-07-10 21:26] LABS: Anion Gap 12 mmol/L (2-16)
[2023-07-10 21:32] LABS: TSH Ultra Thyroid Stim Horm 2.06 mcIU/mL (0.34-5.60)
[2023-07-10] MEDS: Iodixanol (CONTRAST) 320 MG/ML 100 ML SDV IV ONE (22:56)
[2023-07-10 23:12] LABS: Magnesium 2.2 mg/dL (1.9-2.7); Potassium Redraw 3.1 mmol/L (3.5-5.0)
[2023-07-11] MEDS: Potassium Chlor 20 meq TAB.ER PO ONE ×3 (03:58→20:43)
[2023-07-11] MEDS: Enoxaparin 40 MG/0.4 ML SYR SUBCUT SCH (04:29)
[2023-07-11 06:03] LABS: Calcium 9.4 mg/dL (8.6-10.3); Creatinine, Serum 0.95 mg/dL (0.51-0.95); Magnesium 2.1 mg/dL (1.9-2.7); Potassium 3.2 mmol/L (3.5-5.0); eGFR CKD-EPI 62.1 (>60)
[2023-07-11] MEDS: CMCS: Cyclosporine 0.05% OPHTH (NF) 0.4 ML VIAL BOTH EYES SCH (20:56)
[2023-07-12 06:33] LABS: Calcium 8.7 mg/dL (8.6-10.3); Creatinine, Serum 0.74 mg/dL (0.51-0.95); eGFR CKD-EPI 83.8 (>60)
[2023-07-14 10:29] LABS: ABS Lymphocytes 1.8 10^3/uL (1.0-4.8); ABS Monocytes 0.9 10^3/uL (0.0-0.9); ABS Neutrophils 7.6 10^3/uL (1.5-7.6); Eosinophil % 0.3 %; Hematocrit 40.1 % (35-45); Hemoglobin 13.7 g/dL (11.5-14.3); Mean Corpuscular Hemoglobin 30.6 pg (27-33); Mean Corpuscular Hgb Conc 34.1 g/dL (31-36); Mean Corpuscular Volume 89.6 fL (80-97); Mean Platelet Volume 8.4 fL (7.5-11.2); Platelet Count 313 10^3/uL (150-450); Red Blood Count 4.48 10^6/uL (3.63-4.92); Red Cell Distribution Width 14.2 % (12-17); White Blood Count 10.4 10^3/uL (3.8-11.8)
[2023-07-14 11:39] LABS: Creatinine, Serum 0.92 mg/dL (0.51-0.95); Potassium 3.7 mmol/L (3.5-5.0); eGFR CKD-EPI 64.5 (>60)
[2023-07-14 13:03] LABS: Urine Appearance Clear; Urine Bilirubin Negative (Negative); Urine Blood Negative (Negative); Urine Color Yellow; Urine Glucose Negative (Negative); Urine Ketones Negative (Negative); Urine Nitrite Negative (Negative); Urine Protein Trace (Negative); Urine Specific Gravity 1.024 (1.002-1.030); Urine Urobilinogen Negative (Negative); Urine pH 5.5 (5.0-8.0)
[2023-07-14 13:04] LABS: Urine Bacteria Absent /HPF (Absent); Urine Red Blood Cell 1+(3-5/hpf) /HPF (0-Trace); Urine Squamous Epithelial Cell Present /HPF (Absent); Urine White Blood Cell Trace(0-5/hpf) /HPF (0-Trace)
[2023-07-15] MEDS: guaiFENesin 100 mg/5 ml LIQ unit dose cup PO PRN (18:35)
[2023-07-15] MEDS: Benzocaine/Menthol LOZ MT PRN (18:35)
[2023-07-17 21:41] LABS: Rapid COVID-19 Molecular Undetected (Undetected)
[2023-07-18 13:53] VITALS: BP 118/60
== END 2023-07-18 15:13 | DRG 57 ==
LOC: ED 18:19 → EDHOLD 07-11 02:08 → SUATTDRO 07-11 02:08 → MEDTELE 07-11 12:04
PROVIDERS: ADMIT Internal Medicine; ATTEND Student in an Organized Health Care Education/Training Program